=== PATIENT | male | born 1945 | race Caucasian/White ===

== ENCOUNTER 2018-12-23 12:05 | Emergency (ER) | payer MEDICARE ==
--- NOTE | 2018-12-23 12:46 | EDM.PDOC ---
ED HPI GENERAL MEDICAL PROBLEM - General Chief Complaint: Upper Extremity Injury/Pain Stated Complaint: LACERATION ON LT RING FINGER Time Seen by Provider: 12/23/18 12:17 Source of Information: Reports: Patient History Limitations: Reports: No Limitations - History of Present Illness INITIAL COMMENTS - FREE TEXT/NARRATIVE: 73 male was helping trailer a boat and crushed finger. left ring, he then pulled his finger out of hitch and pulled nail off. generally healthy - Related Data Allergies Allergy/AdvReac Type Severity Reaction Status Date / Time No Known Allergies Allergy Verified 12/23/18 12:28 Home Meds: Home Meds NK [No Known Home Meds] 12/23/18 [History] Past Medical History Cardiovascular History: Reports: Hypertension - Past Surgical History GI Surgical History: Reports: Appendectomy Social & Family History - Tobacco Use Smoking Status *Q: Never Smoker Review of Systems - Review of Systems Review Of Systems: See Below Constitutional: Denies: Chills, Fever Respiratory: Denies: Shortness of Breath, Wheezing Cardiovascular: Denies: Chest Pain ED EXAM, GENERAL - Physical Exam Exam: See Below Exam Limited By: No Limitations General Appearance: Alert, WD/WN, No Apparent Distress Respiratory/Chest: No Respiratory Distress Extremities: Other (left right finger mild edema, mild ecchymosis, ROM mildly limited by pain) Skin Exam: Warm, Dry, Intact, Other (complete traumatic removal of nail of left ring finger ) Lymphatic: No Adenopathy Course - Vital Signs Last Recorded V/S: Last Vital Signs Temp 35.9 C 12/23/18 12:34 Pulse 92 12/23/18 12:34 Resp 16 12/23/18 12:34 BP 158/98 H 12/23/18 12:34 Pulse Ox 97 12/23/18 12:34 - Orders/Labs/Meds Orders: Active Orders 24 hr Category Date Time Status Fingers Fourth Digit Lt F3 [CR] Stat Exams 12/23/18 12:43 Taken - Radiology Interpretation Free Text/Narrative:: preliminary read shows no fracture - Re-Assessments/Exams Free Text/Narrative Re-Assessment/Exam: 12/23/18 13:12 nail bed was cleansed with hibacleanse and dressed Departure - Departure Time of Disposition: 13:12 Disposition: Home, Self-Care 01 Condition: Good Clinical Impression: Nailbed injury Finger injury Qualifiers: Encounter type: initial encounter Laterality: left Qualified Code(s): S69.92XA - Unspecified injury of left wrist, hand and finger(s), initial encounter - Discharge Information *PRESCRIPTION DRUG MONITORING PROGRAM REVIEWED*: Not Applicable *COPY OF PRESCRIPTION DRUG MONITORING REPORT IN PATIENT IZAIAH: Not Applicable Instructions: Crush Injury of the Hand, [id number] Referrals: PCP,None [Primary Care Provider] - Forms: ED Department Discharge Additional Instructions: ice as much as possible to control pain and swelling ibuprofen 400-600 mg every 6 hours as needed for pain protect nail bed wash with warm soapy water daily may use topical antibiotic on nail bed - My Orders Last 24 Hours: My Active Orders 12/23/18 12:43 Fingers Fourth Digit Lt F3 [CR] Stat - Assessment/Plan Last 24 Hours: My Active Orders 12/23/18 12:43 Fingers Fourth Digit Lt F3 [CR] Stat
--- NOTE | 2018-12-23 13:16 | CRLCR ---
INDICATION: Crush injury to left 4th finger TECHNIQUE: Frontal, lateral, and oblique views of the left 4th finger COMPARISON: None FINDINGS AND IMPRESSION: There is a subtle oblique linear lucency at the 4th distal phalanx tuft, best seen on the oblique view, suspicious for fracture. Recommend correlation for point tenderness in this area. Normal alignment. Joint spaces are maintained. Dictated by Geneva Waters MD @ 12/23/2018 1:15:49 PM Dictated by: Geneva Waters MD @ 12/23/2018 13:15:54 (Electronically Signed)
== END 2018-12-23 13:57 | disposition home or self-care (01) ==
LOC: JP.ED 12:05
DX: S60.142A Contusion of left ring finger with damage to nail, initial encounter (principal); I10 Essential (primary) hypertension; W23.0XXA Caught, crushed, jammed, or pinched between moving objects, initial encounter
CPT/HCPCS: 73140-F3; 99283-25